=== PATIENT | female | born 1990 ===

== ENCOUNTER 2017-05-26 13:30 | Inpatient (IN) | payer OTHER ==
[~2017-05-26] VITALS: Ht 165.1 cm; Wt 3.6 kg
[2017-06-11] MEDS ORDERED: PRENATAL TABLE1 EAC4 PO (08:39)
== END 2017-06-14 13:02 | DRG 766 ==
LOC: LDR 06-04 13:30 → O/R 06-11 15:17 → OB/GYN 06-11 16:36
PROVIDERS: Obstetrics & Gynecology
PROC: 3E033VJ Introduction of Other Hormone into Peripheral Vein, Percutaneous Approach (ICD-10-PCS; 2017-06-11)
PROC: 4A033R1 Measurement of Arterial Saturation, Peripheral, Percutaneous Approach (ICD-10-PCS; 2017-06-11)
PROC: 4A1HXCZ Monitoring of Products of Conception, Cardiac Rate, External Approach (ICD-10-PCS; 2017-06-11)
PROC: 10D00Z1 Extraction of Products of Conception, Low, Open Approach (ICD-10-PCS; principal; 2017-06-11 14:00)
DX: O61.0 Failed medical induction of labor (principal); O65.8 Obstructed labor due to other maternal pelvic abnormalities; Z3A.40 40 weeks gestation of pregnancy; Z37.0 Single live birth

== ENCOUNTER 2019-02-11 14:07 | Outpatient (CLI) | payer OTHER ==
[~2019-02-11 14:07] MED LIST: PRENATAL TABLE1 EAC4 PO
== END 2019-02-11 22:33 | disposition home or self-care (01) ==
LOC: OBS/DEL 14:07
DX: O26.893 Other specified pregnancy related conditions, third trimester (principal); Z04.3 Encounter for examination and observation following other accident; R10.2 Pelvic and perineal pain; O26.843 Uterine size-date discrepancy, third trimester; O36.80X0 Pregnancy with inconclusive fetal viability, not applicable or unspecified; W19.XXXA Unspecified fall, initial encounter; Y93.89 Activity, other specified; Y92.89 Other specified places as the place of occurrence of the external cause; Y99.8 Other external cause status

== ENCOUNTER 2019-03-22 08:15 | Inpatient (IN) | payer OTHER ==
[~2019-03-22] VITALS: Ht 157.5 cm; Wt 96.2 kg
[2019-03-22] MEDS ORDERED: PROAIR HFA8.5 GM IH (11:01)
== END 2019-03-27 13:14 | disposition home or self-care (01) | DRG 788 ==
LOC: ADM 08:15 → EDSTATUS 08:15 → O/R 03-24 06:02 → OB/GYN 03-24 06:02 → LDR 03-24 07:00 → OB/GYN 03-24 16:13
PROVIDERS: ADMIT Obstetrics & Gynecology
PROC: 4A1HXCZ Monitoring of Products of Conception, Cardiac Rate, External Approach (ICD-10-PCS; 2019-03-24)
PROC: 4A033R1 Measurement of Arterial Saturation, Peripheral, Percutaneous Approach (ICD-10-PCS; 2019-03-24)
PROC: 10D00Z1 Extraction of Products of Conception, Low, Open Approach (ICD-10-PCS; principal; 2019-03-24 07:00)
DX: O82 Encounter for cesarean delivery without indication (principal); O34.211 Maternal care for low transverse scar from previous cesarean delivery; O36.63X0 Maternal care for excessive fetal growth, third trimester, not applicable or unspecified; Z3A.39 39 weeks gestation of pregnancy; Z37.0 Single live birth